=== PATIENT | female | born 1945 | race Caucasian/White ===

== ENCOUNTER 2018-12-18 16:38 | Inpatient (IN) | payer OTHER, MEDICAID ==
[~2018-12-18] VITALS: Ht 154.9 cm; Wt 73.5 kg
[~2018-12-18 16:38] MED LIST: DOXY150T; IBUPROFEN; METHOTREXATE
[2018-12-18] MEDS ORDERED: SODIUM CHLORIDE 0.9% 1,000 ML IV ONE (18:11)
[2018-12-18] MEDS ORDERED: KETOROLAC 30MG/ML VIAL IV STA (18:11)
[2018-12-18] MEDS ORDERED: ONDANSETRON HCL 4MG/2ML INJ IV STA (18:11)
[2018-12-18] MEDS ORDERED: CLINDAMYCIN 600 MG in DEXTROSE 5% WATER 50 ML IV ONE (18:15)
[2018-12-18] MEDS ORDERED: BACITRACIN ZINC OINT UDPKT TOP ONE (18:15)
[2018-12-18 18:17] LABS: BASOPHILS % 0.6 % (0.0-2.0); EOSINOPHILS % 5.6 % (0.0-5.0); HEMATOCRIT. 39.1 % (36.0-48.0); HEMOGLOBIN. 13.1 g/dL (12.0-16.0); LYMPHOCYTES % 24.1 % (20.0-50.0); MEAN CORPUSCULAR HEMOGLOBIN 33.7 pg (28.0-32.0); MEAN CORPUSCULAR VOLUME 100.4 fL (81.0-99.0); MEAN PLATELET VOLUME 8.6 fl (7.4-10.4); MONOCYTES % 7.3 % (2.0-8.0); NEUTROPHILS % 62.4 % (40.0-76.0); PLATELET 155 x1000/uL (130-400); RED BLOOD CELL COUNT 3.89 mill/uL (4.2-5.4); RED CELL DISTRIBUTION WIDTH 14.1 % (11.6-14.6)
[2018-12-18 18:21] LABS: CHLORIDE 108 mEq/L (98-107)
[2018-12-18 18:43] LABS: INR 1.2; PROTHROMBIN TIME 11.8 sec (9.1-11.1)
[2018-12-18] MEDS ORDERED: ONDANSETRON HCL 4MG/2ML INJ IV ONE (20:30)
[2018-12-18] MEDS ORDERED: MORPHINE SULFATE 4 MG/ML CPJ (NOT FOR IM USE) IV ONE (20:30)
[2018-12-18] MEDS ORDERED: METOCLOPRAMIDE HCL 10MG/2ML VIAL IV ONE (21:15)
[2018-12-18 23:53] VITALS: BP 118/61
[2018-12-19] VITALS: BP 118/41
[2018-12-19] MEDS ORDERED: ALBU18HF2 IH (00:15)
[2018-12-19] MEDS: DEXT 5%/0.45% NACL 1000ML 1,000 ML IV SCH ×2 (03:01→15:02)
[2018-12-19 04:00] VITALS: BP 100/64
[2018-12-19] MEDS: IPRATROPIUM/ALBUTEROL 0.5-3(2.5)MG/3ML NEB HHN SCH ×4 (07:33→21:22)
[2018-12-19 08:00] VITALS: BP_SYST 100; BP_SYST 112; BP_DIAS 61; BP_DIAS 63
[2018-12-19] MEDS: MORPHINE SULFATE 4 MG/ML CPJ (NOT FOR IM USE) IV PRN ×3 (08:39→19:54)
[2018-12-19 09:57] LABS: BASOPHILS % 0.5 % (0.0-2.0); EOSINOPHILS % 2.5 % (0.0-5.0); HEMATOCRIT. 33.9 % (36.0-48.0); HEMOGLOBIN. 11.6 g/dL (12.0-16.0); LYMPHOCYTES % 13.5 % (20.0-50.0); MEAN CORPUSCULAR HEMOGLOBIN 34.3 pg (28.0-32.0); MEAN CORPUSCULAR VOLUME 100.4 fL (81.0-99.0); MEAN PLATELET VOLUME 8.5 fl (7.4-10.4); MONOCYTES % 7.5 % (2.0-8.0); PLATELET 140 x1000/uL (130-400); RED BLOOD CELL COUNT 3.37 mill/uL (4.2-5.4); RED CELL DISTRIBUTION WIDTH 13.9 % (11.6-14.6)
[2018-12-19 10:13] LABS: CHLORIDE 108 mEq/L (98-107)
[2018-12-19] MEDS ORDERED: ONDANSETRON HCL 4MG/2ML INJ IV PRN (11:45)
[2018-12-19 12:00] VITALS: BP_SYST 122; BP_SYST 130; BP_DIAS 60; BP_DIAS 62
[2018-12-19] MEDS ORDERED: PHYTONADIONE 10MG/ML AMP SUBCUT NR (12:40)
[2018-12-19 16:00] VITALS: BP_SYST 121; BP_DIAS 69; BP_DIAS 70
[2018-12-19 20:00] VITALS: BP 147/81
[2018-12-20] VITALS: BP 130/70
[2018-12-20] MEDS: DEXT 5%/0.45% NACL 1000ML 1,000 ML IV SCH (02:55)
[2018-12-20 04:00] VITALS: BP 131/71
[2018-12-20] MEDS: IPRATROPIUM/ALBUTEROL 0.5-3(2.5)MG/3ML NEB HHN SCH ×5 (07:27→20:09)
[2018-12-20 08:00] VITALS: BP 136/69
[2018-12-20 12:00] VITALS: BP 132/61
[2018-12-20 16:00] VITALS: BP 136/70
[2018-12-20 20:00] VITALS: BP 149/69
[2018-12-21] VITALS: BP 159/77
[2018-12-21] MEDS ORDERED: DIPHENHYDRAMINE 12.5MG/5ML UDC PO PRN
[2018-12-21] MEDS: IPRATROPIUM/ALBUTEROL 0.5-3(2.5)MG/3ML NEB HHN SCH ×5 (03:57→16:00)
[2018-12-21 04:00] VITALS: BP 119/59
[2018-12-21 08:00] VITALS: BP 118/65
[2018-12-21 09:33] LABS: BASOPHILS % 0.7 % (0.0-2.0); EOSINOPHILS % 6.4 % (0.0-5.0); HEMATOCRIT. 34.6 % (36.0-48.0); HEMOGLOBIN. 11.8 g/dL (12.0-16.0); LYMPHOCYTES % 23.9 % (20.0-50.0); MEAN CORPUSCULAR HEMOGLOBIN 34.3 pg (28.0-32.0); MEAN CORPUSCULAR VOLUME 100.8 fL (81.0-99.0); MEAN PLATELET VOLUME 8.1 fl (7.4-10.4); MONOCYTES % 10.4 % (2.0-8.0); NEUTROPHILS % 58.6 % (40.0-76.0); PLATELET 126 x1000/uL (130-400); RED BLOOD CELL COUNT 3.44 mill/uL (4.2-5.4)
[2018-12-21] MEDS ORDERED: BUPIVACAINE HCL/PF 0.25% (2.5MG/ML) 10ML ONE (10:59)
[2018-12-21] MEDS ORDERED: VANCOMYCIN HCL 500 MG/VIAL ONE (11:00)
[2018-12-21 11:22] LABS: CHLORIDE 110 mEq/L (98-107)
[2018-12-21 12:00] VITALS: BP 131/65
[2018-12-21] MEDS ORDERED: PROPOFOL 200MG/20ML VIAL IV ONE (13:10)
[2018-12-21] MEDS ORDERED: MIDAZOLAM HCL 2 MG/2 ML VIAL ONE (13:10)
[2018-12-21] MEDS ORDERED: FENTANYL CITRATE/PF 50MCG/ML 2ML VIAL ONE ×2 (13:10→13:39)
[2018-12-21] MEDS ORDERED: METOCLOPRAMIDE HCL 10MG/2ML VIAL ONE ×2 (13:39→15:58)
[2018-12-21] MEDS ORDERED: ONDANSETRON HCL 4MG/2ML INJ ONE ×2 (13:39→15:58)
[2018-12-21] MEDS ORDERED: SUCCINYLCHOLINE CHLORIDE 200MG/10ML IV ONE (13:39)
[2018-12-21] MEDS ORDERED: VECURONIUM BROMIDE 10 MG/VIAL IV ONE (13:39)
[2018-12-21] MEDS ORDERED: MEPERIDINE HCL/PF 25MG/ML CPJ IV PRN (14:45)
[2018-12-21] MEDS ORDERED: HYDROMORPHONE HCL/PF 2MG/ML CPJ IV PRN (14:45)
[2018-12-21] MEDS ORDERED: ONDANSETRON HCL 4MG/2ML INJ IV PRN (14:45)
[2018-12-21] MEDS ORDERED: KETOROLAC 30MG/ML VIAL ONE (15:09)
[2018-12-21] MEDS ORDERED: DEXAMETHASONE 4MG/ML 1ML VIAL ONE (15:58)
[2018-12-21] MEDS ORDERED: TERBUTALINE SULFATE 1MG/ML VIAL ONE (16:50)
[2018-12-21] MEDS ORDERED: HYDRALAZINE 20MG/ML VIAL ONE (16:57)
[2018-12-21] MEDS ORDERED: HYDROCODONE/ACETAMINOPHEN 5/325MG TABLET PO PRN (17:15)
[2018-12-21] MEDS: FENTANYL CITRATE/PF 50MCG/ML 2ML VIAL IV PRN ×3 (17:42→18:10)
[2018-12-21] MEDS ORDERED: LORAZEPAM 0.5MG TABLET PO PRN (17:45)
[2018-12-21] MEDS ORDERED: DIPHENHYDRAMINE 50MG/ML VIAL IV PRN (17:45)
[2018-12-21 18:00] LABS: CLARITY URINE CLEAR (CLEAR); COLOR URINE YELLOW (YELLOW); KETONES URINE NEGATIVE (NEGATIVE); LEUKOCYTE ESTERASE URINE TRACE (NEGATIVE); NITRITE URINE NEGATIVE (NEGATIVE); OCCULT BLOOD URINE NEGATIVE (NEGATIVE); PH URINE 6.5 (4.5-8.0); PROTEIN URINE NEGATIVE (NEGATIVE); SPECIFIC GRAVITY URINE 1.014 (1.005-1.030); UROBILINOGEN URINE 0.2 E.U./dL (0.2-1.0)
[2018-12-21 20:00] VITALS: BP 105/50
[2018-12-21] MEDS ORDERED: CEFAZOLIN 1000MG PREMIX 50 ML IV SCH (22:00)
[2018-12-21] MEDS ORDERED: CEFAZOLIN SODIUM 1000MG/VIAL IV SCH (22:00)
[2018-12-22] VITALS: BP 126/55
[2018-12-22] MEDS: IPRATROPIUM/ALBUTEROL 0.5-3(2.5)MG/3ML NEB HHN SCH ×8 (00:18→22:45)
[2018-12-22 06:59] LABS: HEMATOCRIT 31.3 % (36.0-48.0); HEMOGLOBIN 10.7 g/dL (12.0-16.0); MEAN CORPUSCULAR HEMOGLOBIN 34.2 pg (28.0-32.0); MEAN CORPUSCULAR VOLUME 99.9 fL (81.0-99.0); PLATELET 150 x1000/uL (130-400); RED BLOOD CELL COUNT 3.13 mill/uL (4.2-5.4); RED CELL DISTRIBUTION WIDTH 14.3 % (11.6-14.6)
[2018-12-22 07:51] LABS: BG BASE EXCESS -2.7 mmol/L (-2.0-2.0); BG CARBOXYHEMOGLOBIN 0.3 % (0.5-1.5); BG DEOXYHEMOGLOBIN 6.1 % (0.0-5.0); BG HCO3 ACT 20.8 mmol/L (22.0-26.0); BG METHEMOGLOBIN 0.1 % (0.0-1.5); BG OXYGEN SATURATION 93.9 % (92.0-98.5); BG OXYHEMOGLOBIN 93.5 % (94.0-97.0); BG PCO2 31.5 mmHg (35.0-45.0); BG PH 7.438 (7.350-7.450); BG PO2 70.2 mmHg (75.0-100.0); BG SAMPLE SITE LEFT RADIAL; BG TOTAL HEMOGLOBIN 10.5 g/dL (12.0-18.0); BG VENT MODE ROOM AIR
[2018-12-22 08:00] VITALS: BP 138/54
[2018-12-22] MEDS: PANTOPRAZOLE SODIUM 40 MG/VIAL IV SCH (09:11)
[2018-12-22] MEDS: DOCUSATE SODIUM 100MG CAPSULE PO SCH ×2 (09:11→18:13)
[2018-12-22] MEDS: DEXT 5%/0.45% NACL 1000ML 1,000 ML IV SCH (09:11)
[2018-12-22] MEDS: CLINDAMYCIN 600 MG in DEXTROSE 5% WATER 50 ML IV SCH ×2 (11:37→22:03)
[2018-12-22] MEDS: ENOXAPARIN 40MG/0.4ML SYR SUBCUT SCH (11:46)
[2018-12-22 12:00] VITALS: BP 136/66
[2018-12-22 12:35] LABS: CHLORIDE 106 mEq/L (98-107)
[2018-12-22 16:00] VITALS: BP 123/65
[2018-12-22] MEDS: MORPHINE SULFATE 4 MG/ML CPJ (NOT FOR IM USE) IV PRN (18:19)
[2018-12-22 20:00] VITALS: BP 127/53
[2018-12-23] VITALS: BP 105/56
[2018-12-23 04:00] VITALS: BP 115/64
[2018-12-23] MEDS: IPRATROPIUM/ALBUTEROL 0.5-3(2.5)MG/3ML NEB HHN SCH ×4 (04:00→15:10)
[2018-12-23 05:43] LABS: HEMATOCRIT 31.2 % (36.0-48.0); HEMOGLOBIN 10.6 g/dL (12.0-16.0); MEAN CORPUSCULAR HEMOGLOBIN 34.3 pg (28.0-32.0); MEAN CORPUSCULAR VOLUME 101.1 fL (81.0-99.0); PLATELET 164 x1000/uL (130-400); RED BLOOD CELL COUNT 3.08 mill/uL (4.2-5.4); RED CELL DISTRIBUTION WIDTH 14.4 % (11.6-14.6)
[2018-12-23 06:50] LABS: CHLORIDE 109 mEq/L (98-107)
[2018-12-23] MEDS: CLINDAMYCIN 600 MG in DEXTROSE 5% WATER 50 ML IV SCH (07:10)
[2018-12-23 08:00] VITALS: BP 109/51
[2018-12-23] MEDS: DOCUSATE SODIUM 100MG CAPSULE PO SCH (09:00)
[2018-12-23] MEDS: ENOXAPARIN 40MG/0.4ML SYR SUBCUT SCH ×2 (09:00→15:18)
[2018-12-23 12:00] VITALS: BP 116/59
[2018-12-23] MEDS: PANTOPRAZOLE SODIUM 40 MG/VIAL IV SCH (15:11)
[2018-12-23] MEDS: DEXT 5%/0.45% NACL 1000ML 1,000 ML IV SCH (15:12)
[2018-12-23 16:00] VITALS: BP 132/68
== END 2018-12-23 17:00 | DRG 511 ==
LOC: ER 16:38 → 6EST 20:24 → ENRESERV 21:01 → 6EST 12-19 16:30
PROVIDERS: ADMIT Internal Medicine; ATTEND Internal Medicine
PROC: 2W38X1Z Immobilization of Right Upper Extremity using Splint (ICD-10-PCS; 2018-12-18)
PROC: 0PSK04Z Reposition Right Ulna with Internal Fixation Device, Open Approach (ICD-10-PCS; principal; 2018-12-21)
PROC: 0RSL04Z Reposition Right Elbow Joint with Internal Fixation Device, Open Approach (ICD-10-PCS; 2018-12-21)
PROC: 0PRH0JZ Replacement of Right Radius with Synthetic Substitute, Open Approach (ICD-10-PCS; 2018-12-21)
DX: S52.001A Unspecified fracture of upper end of right ulna, initial encounter for closed fracture (principal); J45.901 Unspecified asthma with (acute) exacerbation; S52.121A Displaced fracture of head of right radius, initial encounter for closed fracture; I10 Essential (primary) hypertension; R73.9 Hyperglycemia, unspecified; D64.9 Anemia, unspecified; M06.9 Rheumatoid arthritis, unspecified; M19.90 Unspecified osteoarthritis, unspecified site; M48.02 Spinal stenosis, cervical region; E66.9 Obesity, unspecified; R26.9 Unspecified abnormalities of gait and mobility; M47.812 Spondylosis without myelopathy or radiculopathy, cervical region; M46.92 Unspecified inflammatory spondylopathy, cervical region; S53.31XA Traumatic rupture of right ulnar collateral ligament, initial encounter; W18.30XA Fall on same level, unspecified, initial encounter; Y93.89 Activity, other specified; Y92.89 Other specified places as the place of occurrence of the external cause; Y99.8 Other external cause status; Z68.30 Body mass index [BMI] 30.0-30.9, adult; Z88.0 Allergy status to penicillin; Z88.2 Allergy status to sulfonamides
CPT/HCPCS: 36415; 36600; 70486; 71045; 73060; 73070; 73090; 73100; 73200; 73560; 80048; 82375; 82805; 83036; 84443; 85027; 86850; 86900; 88305; 88311; 93005; 93306; 97116; 97163; 97166; 97530; 99285; A4565; C1893; C9113; J0330; J0360; J0690; J1100; J1650; J1885; J2250; J2270; J2405; J2704; J2765; J3010; J3105; J3370; J3430; J3490; J7030; J7060; J7620; Q0163; Q4051